=== PATIENT | male | born 1965 | race Two or more races ===

== ENCOUNTER 2018-08-11 13:14 | Emergency (ER) | payer MEDICAID ==
[~2018-08-11] VITALS: Ht 170.2 cm; Wt 81.6 kg
[2018-08-11 13:33] VITALS: BP 134/85
== END 2018-08-11 16:30 | disposition home or self-care (01) ==
LOC: ER 13:14
DX: B35.4 Tinea corporis (principal); F17.210 Nicotine dependence, cigarettes, uncomplicated

== ENCOUNTER 2022-06-19 19:23 | Emergency (ER) | payer MEDICAID ==
[2022-06-20] MEDS ORDERED: IBUP800T27 PO (11:14)
[2022-06-20] MEDS ORDERED: SULF400T11 PO (11:14)
== END 2022-06-19 23:45 | disposition left against medical advice (07) ==
LOC: ER 19:23
DX: I10 Essential (primary) hypertension (principal); Z53.21 Procedure and treatment not carried out due to patient leaving prior to being seen by health care provider

== ENCOUNTER 2022-06-20 09:46 | Emergency (ER) | payer MEDICAID ==
[~2022-06-20] VITALS: Ht 170.2 cm; Wt 85.9 kg
[2022-06-20 10:02] VITALS: BP 166/82
[2022-06-20] MEDS ORDERED: IBUP800T27 PO (11:14)
[2022-06-20] MEDS ORDERED: SULF400T11 PO (11:14)
== END 2022-06-20 11:22 | disposition home or self-care (01) ==
LOC: ER 09:46
DX: L02.511 Cutaneous abscess of right hand (principal); I10 Essential (primary) hypertension; F17.210 Nicotine dependence, cigarettes, uncomplicated; Z79.1 Long term (current) use of non-steroidal anti-inflammatories (NSAID); Z79.899 Other long term (current) drug therapy
CPT/HCPCS: 26010

== ENCOUNTER 2022-06-27 13:16 | Emergency (ER) | payer MEDICAID ==
[~2022-06-27] VITALS: Ht 170.2 cm; Wt 90.0 kg
[~2022-06-27 13:16] MED LIST: IBUP800T27 PO; SULF400T11 PO
[2022-06-27 14:12] VITALS: BP 154/90
[2022-06-27] MEDS ORDERED: SULF400T11 PO (14:25)
== END 2022-06-27 14:32 | disposition home or self-care (01) ==
LOC: ER 13:16
DX: L02.511 Cutaneous abscess of right hand (principal); Z48.817 Encounter for surgical aftercare following surgery on the skin and subcutaneous tissue
CPT/HCPCS: 26010

== ENCOUNTER 2022-06-29 15:40 | Emergency (ER) | payer MEDICAID ==
[~2022-06-29] VITALS: Ht 170.2 cm; Wt 190.0 kg
[2022-06-29 16:10] VITALS: BP 165/94
== END 2022-06-29 16:10 | disposition home or self-care (01) ==
LOC: ER 15:40
DX: L02.511 Cutaneous abscess of right hand (principal); I10 Essential (primary) hypertension; F17.210 Nicotine dependence, cigarettes, uncomplicated; F15.10 Other stimulant abuse, uncomplicated; Z48.00 Encounter for change or removal of nonsurgical wound dressing

== ENCOUNTER 2022-08-16 22:01 | Emergency (ER) | payer MEDICAID ==
[~2022-08-16] VITALS: Ht 167.6 cm; Wt 91.0 kg
[2022-08-17 02:27] VITALS: BP 158/98
[2022-08-17] MEDS ORDERED: PRED20TA2 PO (05:24)
[2022-08-17] MEDS ORDERED: ALBUAER3 IN (05:24)
== END 2022-08-17 05:30 | disposition home or self-care (01) ==
LOC: ER 22:05
DX: J40 Bronchitis, not specified as acute or chronic (principal); F17.210 Nicotine dependence, cigarettes, uncomplicated; F15.10 Other stimulant abuse, uncomplicated; I10 Essential (primary) hypertension
CPT/HCPCS: 71046

== ENCOUNTER 2022-10-30 05:07 | Emergency (ER) | payer MEDICAID ==
[~2022-10-30] VITALS: Ht 167.6 cm; Wt 89.7 kg
[~2022-10-30 05:07] MED LIST changes: +ALBUAER3 IN; +PRED20TA2 PO
[2022-10-30] MEDS ORDERED: KETOROLAC TROMETH 30 MG/ML 1ML VIAL IM ONE (07:45)
[2022-10-30] MEDS ORDERED: IBUP600T28 PO (08:43)
[2022-10-30 08:45] VITALS: BP 148/86
== END 2022-10-30 09:03 | disposition home or self-care (01) ==
LOC: ER 05:07
DX: S83.8X2A Sprain of other specified parts of left knee, initial encounter (principal); I10 Essential (primary) hypertension; F17.210 Nicotine dependence, cigarettes, uncomplicated; F15.90 Other stimulant use, unspecified, uncomplicated; Z79.899 Other long term (current) drug therapy; X58.XXXA Exposure to other specified factors, initial encounter; Y93.89 Activity, other specified; Y92.89 Other specified places as the place of occurrence of the external cause; Y99.8 Other external cause status
CPT/HCPCS: 73562; 93971; 96372; 99284; J1885

== ENCOUNTER 2024-06-28 14:12 | Inpatient (IN) | payer MEDICAID ==
[~2024-06-28] VITALS: Ht 170.2 cm; Wt 82.3 kg
[~2024-06-28 14:12] MED LIST changes: +IBUP-1456 PO; +IBUP1TAB5 PO; -IBUP800T27 PO
[2024-06-28 15:47] LABS: Urine Amorphous Crystal FEW /hpf (None Seen); Urine Bacteria FEW /hpf (None Seen); Urine Blood TRACE /uL (Negative); Urine Clarity Clear (Clear); Urine Color Colorless (Yellow); Urine Protein, UAD TRACE (Negative); Urine Specific Gravity 1.007 (1.001-1.035); Urine Urobilinogen Normal (Negative); Urine WBC 43 /hpf (0 - 3); Urine pH 7.5 (5.0-9.0)
[2024-06-28 18:34] LABS: Basophils # (auto) 0.1 10 ^3/uL (0-0.2); Basophils % (auto) 1.1 % (0.0-2.0); Eosinophils # (auto) 0.4 10 ^3/uL (0-0.8); Eosinophils % (auto) 5.9 % (0.0-7.0); Hematocrit 30.5 % (41.0-53.0); Hemoglobin 10.5 g/dL (13.5-17.5); Lymphocytes # (auto) 1.2 10 ^3/uL (0.4-5.4); Lymphocytes % (auto) 19.3 % (10.0-50.0); Mean Corpuscular Hemoglobin 31.4 pg (28.0-32.0); Mean Corpuscular Hgb Conc. 34.6 g/dL (32.0-36.0); Mean Corpuscular Volume 90.6 fL (80.0-100.0); Monocytes # (auto) 0.5 10 ^3/uL (0-1.3); Monocytes % (auto) 8.6 % (0.0-12.0); Neutrophils # (auto) 3.9 10 ^3/uL (1.6-8.6); Neutrophils % (auto) 65.1 % (37.0-80.0); Platelet Count (auto) 286 10^3/uL (140-450); Red Blood Cells 3.36 10^6/uL (4.5-5.90); Red Cell Distribution Width 13.5 % (11.8-14.3); White Blood Cell 6.1 10^3/uL (4.4-10.8)
[2024-06-28 18:57] LABS: Alanine Aminotransferase 25 U/L (7-40); Albumin 4.7 g/dL (3.2-4.8); Alkaline Phosphatase 77 U/L (46-116); Anion Gap 14 (5-15); Aspartate Aminotransferase 10 U/L (13-40); BUN/Creatinine Ratio 8.4 (10.0-20.0); Calcium 9.3 mg/dL (8.7-10.4); Carbon Dioxide 21 mmol/L (20-30); Chloride 102 mmol/L (98-107); Glucose 95 mg/dL (74-106); Lipase 95 U/L (12-53); Potassium 4.1 mmol/L (3.5-5.1); Sodium 137 mmol/L (136-145)
[2024-06-28 18:58] LABS: Bilirubin, Total 0.3 mg/dL (0.2-1.0); Total Protein 8.1 g/dL (5.7-8.2)
[2024-06-28 19:04] LABS: Blood Urea Nitrogen 91 mg/dL (9-23)
[2024-06-28] MEDS: hydrALAZINE HCL 20 MG/ML VL IV ONE (20:06)
[2024-06-28] MEDS: hydrALAZINE HCL 20 MG/ML VL ONE (20:07)
[2024-06-28] MEDS ORDERED: ONDANSETRON HCL 4 MG/2 ML VIAL IV PRN (20:30)
[2024-06-28] MEDS ORDERED: ACETAMINOPHEN 325 MG TAB PO PRN (20:30)
[2024-06-28] MEDS ORDERED: MORPHINE SULFATE INJ 2 MG/ml SYRG IV PRN (20:30)
[2024-06-28] MEDS ORDERED: DOCUSATE SOD 100 MG CAP PO PRN (20:30)
[2024-06-28] MEDS ORDERED: NITROGLYCERIN 0.4 MG SL TAB SL PRN (20:30)
[2024-06-28 21:50] VITALS: PULSE 82; RESP 19; O2SAT 98
[2024-06-28] MEDS: SODIUM CHLOR 0.9% PF (SALINE LOCK) 10ML VIAL/SYR IV SCH (22:00)
[2024-06-28] MEDS: cefTRIAXone 1GM/50ML D5W 50 ML IV ONE (22:22)
[2024-06-28] MEDS: METOPROLOL TARTRATE 25 MG TAB PO SCH (22:23)
[2024-06-28 23:43] VITALS: BP 189/104; PULSE 75; RESP 18; TEMP 97.7; O2SAT 98
[2024-06-28] MEDS: hydrALAZINE HCL 20 MG/ML VL IV PRN (23:57)
[2024-06-29] VITALS (8 sets, daily range): BP systolic 104–157; BP diastolic 56–89; PULSE 63–69; RESP 20; TEMP 97.6–98.8; O2SAT 94–99
[2024-06-29] MEDS: HYDROcodone-ACET 5/325MG TAB PO PRN (05:47)
[2024-06-29 06:41] LABS: Basophils # (auto) 0.1 10 ^3/uL (0-0.2); Basophils % (auto) 0.7 % (0.0-2.0); Eosinophils # (auto) 0.3 10 ^3/uL (0-0.8); Eosinophils % (auto) 3.8 % (0.0-7.0); Hematocrit 34.7 % (41.0-53.0); Hemoglobin 11.8 g/dL (13.5-17.5); Lymphocytes # (auto) 1.1 10 ^3/uL (0.4-5.4); Lymphocytes % (auto) 14.4 % (10.0-50.0); Mean Corpuscular Hemoglobin 31.1 pg (28.0-32.0); Mean Corpuscular Hgb Conc. 33.9 g/dL (32.0-36.0); Mean Corpuscular Volume 91.8 fL (80.0-100.0); Monocytes # (auto) 0.5 10 ^3/uL (0-1.3); Monocytes % (auto) 6.9 % (0.0-12.0); Neutrophils # (auto) 5.7 10 ^3/uL (1.6-8.6); Neutrophils % (auto) 74.2 % (37.0-80.0); Platelet Count (auto) 330 10^3/uL (140-450); Red Blood Cells 3.78 10^6/uL (4.5-5.90); White Blood Cell 7.7 10^3/uL (4.4-10.8)
[2024-06-29 06:55] LABS: Alanine Aminotransferase 25 U/L (7-40); Albumin 4.7 g/dL (3.2-4.8); Alkaline Phosphatase 76 U/L (46-116); Anion Gap 14 (5-15); Aspartate Aminotransferase 10 U/L (13-40); BUN/Creatinine Ratio 8.3 (10.0-20.0); Bilirubin, Total 0.3 mg/dL (0.2-1.0); Calcium 9.5 mg/dL (8.7-10.4); Carbon Dioxide 20 mmol/L (20-30); Chloride 102 mmol/L (98-107); Glucose 103 mg/dL (74-106); Potassium 4.2 mmol/L (3.5-5.1); Sodium 136 mmol/L (136-145); Total Protein 8.1 g/dL (5.7-8.2)
[2024-06-29 07:13] LABS: Blood Urea Nitrogen 88 mg/dL (9-23)
[2024-06-29] MEDS: B-COMPLEX W/ C & FOLIC ACID(NEPHROVITE TAB) PO SCH (09:43)
[2024-06-29] MEDS: TAMSULOSIN HYDROCHLORIDE 0.4 MG CAP PO SCH (09:44)
[2024-06-29] MEDS: amLODIPine BESYLATE 5 MG TAB PO SCH (09:44)
[2024-06-29] MEDS ORDERED: amLODIPine BESYLATE 5 MG TAB PO SCH (10:00)
[2024-06-29] MEDS: cefTRIAXone 1GM/50ML D5W 50 ML IV SCH (21:12)
[2024-06-30] VITALS (7 sets, daily range): BP systolic 101–137; BP diastolic 44–92; PULSE 64–98; RESP 16–20; TEMP 97.6–98.7; O2SAT 95–98
[2024-06-30 06:33] LABS: Calcium 9.4 mg/dL (8.7-10.4); Chloride 98 mmol/L (98-107); Potassium 4.3 mmol/L (3.5-5.1)
[2024-06-30 06:34] LABS: Anion Gap 15 (5-15); Carbon Dioxide 16 mmol/L (20-30)
[2024-06-30 06:39] LABS: BUN/Creatinine Ratio 9.7 (10.0-20.0); Glucose 119 mg/dL (74-106); Triglycerides 127 mg/dL (< 150)
[2024-06-30 06:40] LABS: LDL Cholesterol 83 mg/dL (< 100)
[2024-06-30 06:41] LABS: Cholesterol 147 mg/dL (< 200); HDL Cholesterol 40 mg/dL (40-59)
[2024-06-30 06:42] LABS: Sodium 129 mmol/L (136-145)
[2024-06-30 06:44] LABS: Blood Urea Nitrogen 102 mg/dL (9-23)
[2024-06-30 06:53] LABS: Basophils # (auto) 0 10 ^3/uL (0-0.2); Basophils % (auto) 0.5 % (0.0-2.0); Eosinophils # (auto) 0.2 10 ^3/uL (0-0.8); Eosinophils % (auto) 1.9 % (0.0-7.0); Hematocrit 35.2 % (41.0-53.0); Lymphocytes # (auto) 1.5 10 ^3/uL (0.4-5.4); Lymphocytes % (auto) 15.4 % (10.0-50.0); Mean Corpuscular Volume 91.1 fL (80.0-100.0); Monocytes # (auto) 0.6 10 ^3/uL (0-1.3); Monocytes % (auto) 5.6 % (0.0-12.0); Neutrophils # (auto) 7.7 10 ^3/uL (1.6-8.6); Neutrophils % (auto) 76.6 % (37.0-80.0); Nucleated Red Blood Cells % 0.1 %; Platelet Count (auto) 325 10^3/uL (140-450); Red Blood Cells 3.87 10^6/uL (4.5-5.90); Red Cell Distribution Width 13.8 % (11.8-14.3); White Blood Cell 10.1 10^3/uL (4.4-10.8)
[2024-06-30] MEDS ORDERED: SODIUM CHLORIDE 0.9% 1,000 ML IV SCH (15:45)
[2024-06-30] MEDS: SODIUM CHLORIDE 0.9% 1,000 ML IV SCH (16:00)
[2024-07-01] VITALS (7 sets, daily range): BP systolic 109–150; BP diastolic 60–86; PULSE 70–88; RESP 18–20; TEMP 98.3–98.6; O2SAT 95–99
[2024-07-01 06:31] LABS: Anion Gap 14 (5-15); Carbon Dioxide 16 mmol/L (20-30); Chloride 101 mmol/L (98-107); Potassium 3.8 mmol/L (3.5-5.1); Sodium 131 mmol/L (136-145)
[2024-07-01 06:32] LABS: Calcium 8.9 mg/dL (8.7-10.4)
[2024-07-01 06:34] LABS: Basophils # (auto) 0.1 10 ^3/uL (0-0.2); Basophils % (auto) 0.6 % (0.0-2.0); Eosinophils # (auto) 0.5 10 ^3/uL (0-0.8); Eosinophils % (auto) 4.8 % (0.0-7.0); Hematocrit 32.2 % (41.0-53.0); Lymphocytes # (auto) 1.3 10 ^3/uL (0.4-5.4); Lymphocytes % (auto) 13.7 % (10.0-50.0); Mean Corpuscular Hemoglobin 30.8 pg (28.0-32.0); Mean Corpuscular Hgb Conc. 34.1 g/dL (32.0-36.0); Mean Corpuscular Volume 90.3 fL (80.0-100.0); Monocytes # (auto) 0.7 10 ^3/uL (0-1.3); Neutrophils # (auto) 7.1 10 ^3/uL (1.6-8.6); Neutrophils % (auto) 73.9 % (37.0-80.0); Platelet Count (auto) 282 10^3/uL (140-450); Red Blood Cells 3.56 10^6/uL (4.5-5.90); Red Cell Distribution Width 13.5 % (11.8-14.3); White Blood Cell 9.6 10^3/uL (4.4-10.8)
[2024-07-01 06:37] LABS: BUN/Creatinine Ratio 11.1 (10.0-20.0); Glucose 110 mg/dL (74-106)
[2024-07-01 07:01] LABS: Blood Urea Nitrogen 100 mg/dL (9-23)
[2024-07-01 08:30] LABS: Magnesium 1.6 mg/dL (1.6-2.6)
[2024-07-01 08:32] LABS: Phosphorus 7.8 mg/dL (2.4-5.1)
[2024-07-01] MEDS: LACTULOSE 20Gm/30ML SOLN PO ONE (09:45)
[2024-07-01] MEDS: amLODIPine BESYLATE 5 MG TAB PO SCH (09:46)
[2024-07-01] MEDS: DOCUSATE SOD 100 MG CAP PO SCH (09:46)
[2024-07-01] MEDS: SODIUM CHLORIDE 0.9% 1,000 ML IV SCH (15:45)
[2024-07-01] MEDS: SODIUM BICARBONATE 650 MG TAB PO ONE (16:31)
[2024-07-01] MEDS: CALCITRIOL 0.25 MCG CAP PO ONE (16:31)
[2024-07-01] MEDS ORDERED: CALCIUM ACETATE 667 MG CAP PO SCH (18:00)
[2024-07-01] MEDS ORDERED: SODIUM BICARBONATE 650 MG TAB PO SCH (18:00)
[2024-07-01] MEDS: SODIUM BICARBONATE 650 MG TAB PO SCH (21:06)
[2024-07-02] VITALS (11 sets, daily range): BP systolic 107–158; BP diastolic 60–79; PULSE 79–89; RESP 13–87; TEMP 98.3–99.1; O2SAT 96–99
[2024-07-02 07:10] LABS: Chloride 103 mmol/L (98-107); Potassium 3.6 mmol/L (3.5-5.1); Sodium 134 mmol/L (136-145)
[2024-07-02 07:11] LABS: Anion Gap 15 (5-15); Calcium 9.1 mg/dL (8.7-10.4); Carbon Dioxide 16 mmol/L (20-30)
[2024-07-02 07:16] LABS: BUN/Creatinine Ratio 12.1 (10.0-20.0); Glucose 130 mg/dL (74-106)
[2024-07-02 07:21] LABS: Blood Urea Nitrogen 86 mg/dL (9-23)
[2024-07-02 07:30] LABS: Basophils # (auto) 0 10 ^3/uL (0-0.2); Basophils % (auto) 0.4 % (0.0-2.0); Eosinophils # (auto) 0.5 10 ^3/uL (0-0.8); Eosinophils % (auto) 4.7 % (0.0-7.0); Hematocrit 34.7 % (41.0-53.0); Hemoglobin 11.8 g/dL (13.5-17.5); Lymphocytes # (auto) 1.3 10 ^3/uL (0.4-5.4); Lymphocytes % (auto) 12.4 % (10.0-50.0); Mean Corpuscular Hemoglobin 31.7 pg (28.0-32.0); Mean Corpuscular Hgb Conc. 33.9 g/dL (32.0-36.0); Mean Corpuscular Volume 93.4 fL (80.0-100.0); Monocytes # (auto) 0.7 10 ^3/uL (0-1.3); Monocytes % (auto) 6.4 % (0.0-12.0); Neutrophils # (auto) 7.8 10 ^3/uL (1.6-8.6); Neutrophils % (auto) 76.1 % (37.0-80.0); Platelet Count (auto) 330 10^3/uL (140-450); Red Blood Cells 3.72 10^6/uL (4.5-5.90); Red Cell Distribution Width 13.8 % (11.8-14.3); White Blood Cell 10.3 10^3/uL (4.4-10.8)
[2024-07-02 07:32] LABS: INR 0.95 (0.9-1.15); Partial Thromboplastin Time 29.3 SEC (24.5-34.5); Prothrombin Time 10.1 sec (9.3-11.8)
[2024-07-02] MEDS: CALCIUM ACETATE 667 MG CAP PO SCH (08:00)
[2024-07-02] MEDS: CALCITRIOL 0.25 MCG CAP PO SCH (10:00)
[2024-07-02] MEDS: fentaNYL CITRATE 100 MCG/2 ML VL ONE (12:11)
[2024-07-02] MEDS: LIDOCAINE 2%HCL (LOCAL ANESTH.) INJ 20ML MDV ONE (12:11)
[2024-07-02] MEDS: IODIXANOL 320MG/ML 100ML BTL IV ONE (12:11)
[2024-07-02] MEDS: MIDAZOLAM HCL 2MG/2ML 2ml VIAL (1mg/ml) ONE (12:11)
[2024-07-02 14:35] LABS: Sodium Urine 51 mmol/L (40-220)
[2024-07-02 14:41] LABS: Protein, Urine 153.8 mg/dL (0.0-11.9)
[2024-07-02 14:42] LABS: Amphetamine Screen, Urine Neg (NEGATIVE); Barbiturate Scree,Urine Neg (NEGATIVE); Benzodiazephine Screen, Urine Neg (NEGATIVE)
[2024-07-02 14:43] LABS: Cannabinoid Screen, Urine Neg (NEGATIVE); Cocaine Screen, Urine Neg (NEGATIVE); Opiate Scree,Urine Neg (NEGATIVE); Phencyclidine Screen, Urine Neg (NEGATIVE)
[2024-07-02] MEDS: SODIUM BICARB 50mEq/50ml Vial 50 ML in SOD CHL 0.45% 1,000 ML IV SCH (17:13)
[2024-07-02] MEDS: ERGOCALCIFEROL 50,000 UNIT(1.25MG) CAP PO SCH (23:02)
[2024-07-03] VITALS (7 sets, daily range): BP systolic 110–162; BP diastolic 56–73; PULSE 77–89; RESP 16–20; TEMP 97.6–99; O2SAT 93–100
[2024-07-03 06:11] LABS: Basophils # (auto) 0.1 10 ^3/uL (0-0.2); Basophils % (auto) 0.7 % (0.0-2.0); Eosinophils # (auto) 0.6 10 ^3/uL (0-0.8); Eosinophils % (auto) 5.9 % (0.0-7.0); Hematocrit 29.9 % (41.0-53.0); Hemoglobin 10.6 g/dL (13.5-17.5); Lymphocytes # (auto) 1.4 10 ^3/uL (0.4-5.4); Lymphocytes % (auto) 13.4 % (10.0-50.0); Mean Corpuscular Hemoglobin 31.9 pg (28.0-32.0); Mean Corpuscular Hgb Conc. 35.5 g/dL (32.0-36.0); Mean Corpuscular Volume 89.8 fL (80.0-100.0); Monocytes # (auto) 0.7 10 ^3/uL (0-1.3); Monocytes % (auto) 7.3 % (0.0-12.0); Neutrophils # (auto) 7.4 10 ^3/uL (1.6-8.6); Neutrophils % (auto) 72.7 % (37.0-80.0); Platelet Count (auto) 307 10^3/uL (140-450); Red Blood Cells 3.32 10^6/uL (4.5-5.90); Red Cell Distribution Width 13.4 % (11.8-14.3); White Blood Cell 10.2 10^3/uL (4.4-10.8)
[2024-07-03 06:21] LABS: Anion Gap 10 (5-15); Carbon Dioxide 22 mmol/L (20-30); Chloride 102 mmol/L (98-107); Potassium 3.2 mmol/L (3.5-5.1); Sodium 134 mmol/L (136-145)
[2024-07-03 06:22] LABS: Calcium 8.7 mg/dL (8.7-10.4)
[2024-07-03 06:27] LABS: Glucose 112 mg/dL (74-106)
[2024-07-03 06:32] LABS: Blood Urea Nitrogen 88 mg/dL (9-23)
[2024-07-03] MEDS ORDERED: POTASSIUM CHL 20MEQ/100ML 100 ML IV SCH (12:45)
[2024-07-03] MEDS: POTASSIUM EFFERVESENT TAB 25 MEQ PO ONE ×2 (15:04→20:35)
[2024-07-03] MEDS: MAGNESIUM SULFATE 1GM/100ML 100 ML IV ONE (16:46)
[2024-07-04] VITALS (8 sets, daily range): BP systolic 124–146; BP diastolic 44–85; PULSE 75–87; RESP 16–22; TEMP 97.8–99; O2SAT 96–100
[2024-07-04 06:22] LABS: Basophils # (auto) 0.1 10 ^3/uL (0-0.2); Basophils % (auto) 0.8 % (0.0-2.0); Eosinophils # (auto) 0.6 10 ^3/uL (0-0.8); Eosinophils % (auto) 6.9 % (0.0-7.0); Hematocrit 27.5 % (41.0-53.0); Hemoglobin 9.9 g/dL (13.5-17.5); Lymphocytes # (auto) 1.6 10 ^3/uL (0.4-5.4); Lymphocytes % (auto) 17.6 % (10.0-50.0); Mean Corpuscular Volume 88.9 fL (80.0-100.0); Monocytes # (auto) 0.8 10 ^3/uL (0-1.3); Monocytes % (auto) 8.8 % (0.0-12.0); Neutrophils # (auto) 5.8 10 ^3/uL (1.6-8.6); Neutrophils % (auto) 65.9 % (37.0-80.0); Platelet Count (auto) 315 10^3/uL (140-450); Red Cell Distribution Width 13.3 % (11.8-14.3); White Blood Cell 8.8 10^3/uL (4.4-10.8)
[2024-07-04 06:32] LABS: Anion Gap 8 (5-15); Carbon Dioxide 28 mmol/L (20-30); Chloride 100 mmol/L (98-107); Potassium 3.4 mmol/L (3.5-5.1); Sodium 136 mmol/L (136-145)
[2024-07-04 06:33] LABS: Calcium 8.9 mg/dL (8.7-10.4)
[2024-07-04 06:38] LABS: BUN/Creatinine Ratio 16.1 (10.0-20.0); Glucose 111 mg/dL (74-106)
[2024-07-04 06:49] LABS: Blood Urea Nitrogen 75 mg/dL (9-23)
[2024-07-04] MEDS: POTASSIUM CHL 20 Meq TABLET PO ONE (07:45)
[2024-07-04] MEDS: SODIUM BICARB 50mEq/50ml Vial 50 ML in SOD CHL 0.45% 1,000 ML IV SCH (11:00)
[2024-07-04] MEDS: POTASSIUM EFFERVESENT TAB 25 MEQ PO ONE (13:05)
[2024-07-05] VITALS (8 sets, daily range): BP systolic 118–148; BP diastolic 55–87; PULSE 72–84; RESP 16–20; TEMP 97.8–99.1; O2SAT 96–100
[2024-07-05 06:14] LABS: Basophils # (auto) 0.1 10 ^3/uL (0-0.2); Basophils % (auto) 0.9 % (0.0-2.0); Eosinophils # (auto) 0.5 10 ^3/uL (0-0.8); Eosinophils % (auto) 6.3 % (0.0-7.0); Hematocrit 26.9 % (41.0-53.0); Hemoglobin 9.8 g/dL (13.5-17.5); Lymphocytes # (auto) 1.6 10 ^3/uL (0.4-5.4); Lymphocytes % (auto) 19.8 % (10.0-50.0); Mean Corpuscular Hemoglobin 32.8 pg (28.0-32.0); Mean Corpuscular Hgb Conc. 36.3 g/dL (32.0-36.0); Mean Corpuscular Volume 90.3 fL (80.0-100.0); Monocytes # (auto) 0.6 10 ^3/uL (0-1.3); Monocytes % (auto) 7.5 % (0.0-12.0); Neutrophils # (auto) 5.2 10 ^3/uL (1.6-8.6); Neutrophils % (auto) 65.5 % (37.0-80.0); Platelet Count (auto) 291 10^3/uL (140-450); Red Blood Cells 2.98 10^6/uL (4.5-5.90); Red Cell Distribution Width 13.2 % (11.8-14.3); White Blood Cell 7.9 10^3/uL (4.4-10.8)
[2024-07-05 06:33] LABS: Anion Gap 8 (5-15); Carbon Dioxide 31 mmol/L (20-30); Chloride 98 mmol/L (98-107); Potassium 3.6 mmol/L (3.5-5.1); Sodium 137 mmol/L (136-145)
[2024-07-05 06:35] LABS: Calcium 8.9 mg/dL (8.7-10.4)
[2024-07-05 06:39] LABS: BUN/Creatinine Ratio 14.1 (10.0-20.0)
[2024-07-05 06:42] LABS: Glucose 104 mg/dL (74-106)
[2024-07-05 06:45] LABS: Blood Urea Nitrogen 61 mg/dL (9-23)
[2024-07-05] MEDS: SODIUM CHLORIDE 0.9% 1,000 ML IV SCH (13:00)
[2024-07-06] VITALS (8 sets, daily range): BP systolic 112–139; BP diastolic 66–84; PULSE 73–86; RESP 18–20; TEMP 98.4–98.9; O2SAT 95–100
[2024-07-06 05:07] LABS: RPR Non Reactive (Non Reactive)
[2024-07-06 06:26] LABS: Anion Gap 6 (5-15); Carbon Dioxide 32 mmol/L (20-30); Chloride 99 mmol/L (98-107); Potassium 3.4 mmol/L (3.5-5.1); Sodium 137 mmol/L (136-145)
[2024-07-06 06:27] LABS: Calcium 9.2 mg/dL (8.7-10.4)
[2024-07-06 06:32] LABS: BUN/Creatinine Ratio 13.9 (10.0-20.0); Blood Urea Nitrogen 58 mg/dL (9-23); Glucose 92 mg/dL (74-106)
[2024-07-06 10:06] LABS: Anti-Nuclear Antibody Direct Negative (Negative)
[2024-07-06] MEDS: POTASSIUM CHL 10 Meq TABLET PO ONE (10:20)
[2024-07-06] MEDS: MAGNESIUM OXIDE 400 MG TAB PO ONE (10:20)
[2024-07-06] MEDS: SODIUM CHLORIDE 0.9% 1,000 ML IV SCH (11:15)
[2024-07-06] MEDS ORDERED: TAMS0.4C39 PO (15:38)
[2024-07-06] MEDS: POTASSIUM CHL 20 Meq TABLET PO ONE (17:43)
[2024-07-07 01:00] VITALS: BP 149/71; PULSE 85; RESP 18; TEMP 98.9; O2SAT 97
[2024-07-07 05:00] VITALS: BP 139/81; PULSE 79; RESP 18; TEMP 98.8; O2SAT 96
[2024-07-07 08:00] VITALS: PULSE 87; RESP 18; O2SAT 96
[2024-07-07 09:00] VITALS: BP_SYST 120; BP_SYST 132; BP_DIAS 69; BP_DIAS 80; PULSE 77; PULSE 87; RESP 18; RESP 20; TEMP 98.1; TEMP 98.3; O2SAT 97
== END 2024-07-07 12:00 | disposition home health service (06) | DRG 501 ==
LOC: ER 14:12 → TELE 20:29 → TELE-EAST 23:43 → EAST 06-29 17:58
PROVIDERS: ADMIT Internal Medicine; ATTEND Internal Medicine
PROC: 0T9330Z Drainage of Right Kidney Pelvis with Drainage Device, Percutaneous Approach (ICD-10-PCS; principal; 2024-07-02)
PROC: 0T9430Z Drainage of Left Kidney Pelvis with Drainage Device, Percutaneous Approach (ICD-10-PCS; 2024-07-02)
DX: N40.1 Benign prostatic hyperplasia with lower urinary tract symptoms (principal); N17.9 Acute kidney failure, unspecified; E87.20 Acidosis, unspecified; N13.6 Pyonephrosis; E83.39 Other disorders of phosphorus metabolism; N04.20 Nephrotic syndrome with diffuse membranous glomerulonephritis, unspecified; N13.8 Other obstructive and reflux uropathy; E87.6 Hypokalemia; F17.210 Nicotine dependence, cigarettes, uncomplicated; E83.42 Hypomagnesemia; I16.1 Hypertensive emergency; I10 Essential (primary) hypertension
CPT/HCPCS: 36415; 50432; 74176; 74425; 76775; 76942; 80048; 80053; 80061; 80307; 81001; 82306; 82570; 83036; 83690; 83735; 83970; 84100; 84132; 84153; 84156; 84300; 85025; 85610; 85730; 86038; 86592; 86703; 86803; 86850; 86900; 86901; 87086; 87340; 93306; 96365; 99152; G0378; J2250; J3480; Q9967

== ENCOUNTER 2024-07-28 16:04 | Emergency (ER) | payer MEDICAID ==
[~2024-07-28] VITALS: Ht 170.2 cm; Wt 84.5 kg
[~2024-07-28 16:04] MED LIST changes: +TAMS0.4C39 PO
[2024-07-28 17:23] LABS: Urine Amorphous Crystal FEW /hpf (None Seen); Urine Bacteria FEW /hpf (None Seen); Urine Blood 1+ /uL (Negative); Urine Clarity Turbid (Clear); Urine Color Yellow (Yellow); Urine Protein, UAD 1+ (Negative); Urine Specific Gravity 1.011 (1.001-1.035); Urine Urobilinogen Normal (Negative); Urine WBC 26 /hpf (0 - 3); Urine pH 6.5 (5.0-9.0)
[2024-07-28 17:29] LABS: Basophils # (auto) 0.1 10 ^3/uL (0-0.2); Basophils % (auto) 0.6 % (0.0-2.0); Eosinophils # (auto) 0.6 10 ^3/uL (0-0.8); Eosinophils % (auto) 5.1 % (0.0-7.0); Hematocrit 28.7 % (41.0-53.0); Hemoglobin 9.9 g/dL (13.5-17.5); Lymphocytes # (auto) 1.7 10 ^3/uL (0.4-5.4); Lymphocytes % (auto) 14.3 % (10.0-50.0); Mean Corpuscular Hemoglobin 31.3 pg (28.0-32.0); Mean Corpuscular Hgb Conc. 34.3 g/dL (32.0-36.0); Mean Corpuscular Volume 91.2 fL (80.0-100.0); Monocytes % (auto) 8.3 % (0.0-12.0); Neutrophils # (auto) 8.5 10 ^3/uL (1.6-8.6); Neutrophils % (auto) 71.7 % (37.0-80.0); Platelet Count (auto) 305 10^3/uL (140-450); Red Blood Cells 3.15 10^6/uL (4.5-5.90); White Blood Cell 11.8 10^3/uL (4.4-10.8)
[2024-07-28 17:45] LABS: Alanine Aminotransferase 20 U/L (7-40); Albumin 4.5 g/dL (3.2-4.8); Alkaline Phosphatase 88 U/L (46-116); Anion Gap 6 (5-15); Aspartate Aminotransferase 14 U/L (13-40); BUN/Creatinine Ratio 15.7 (10.0-20.0); Blood Urea Nitrogen 51 mg/dL (9-23); Calcium 9.5 mg/dL (8.7-10.4); Carbon Dioxide 26 mmol/L (20-30); Chloride 104 mmol/L (98-107); Glucose 94 mg/dL (74-106); Lipase 51 U/L (12-53); Potassium 4.3 mmol/L (3.5-5.1); Sodium 136 mmol/L (136-145)
[2024-07-28 17:46] LABS: Bilirubin, Total 0.2 mg/dL (0.2-1.0); Total Protein 7.3 g/dL (5.7-8.2)
[2024-07-28] MEDS ORDERED: CIPR-173 PO (21:07)
[2024-07-28] MEDS ORDERED: METR-344 PO (21:07)
[2024-07-28 21:25] VITALS: BP 141/82; PULSE 91; RESP 14; TEMP 98.7; O2SAT 100
== END 2024-07-28 21:41 | disposition home or self-care (01) ==
LOC: ER 16:04
DX: K57.92 Diverticulitis of intestine, part unspecified, without perforation or abscess without bleeding (principal); I10 Essential (primary) hypertension; F17.210 Nicotine dependence, cigarettes, uncomplicated; F15.10 Other stimulant abuse, uncomplicated
CPT/HCPCS: 36415; 74176; 80053; 81001; 83690; 85025

== ENCOUNTER 2024-08-05 12:42 | Inpatient (IN) | payer MEDICAID ==
[~2024-08-05] VITALS: Ht 175.3 cm; Wt 94.4 kg
[~2024-08-05 12:42] MED LIST changes: +CIPR-173 PO; +METR-344 PO
[2024-08-05 13:11] LABS: Basophils # (auto) 0.1 10 ^3/uL (0-0.2); Basophils % (auto) 1.2 % (0.0-2.0); Eosinophils # (auto) 0.5 10 ^3/uL (0-0.8); Eosinophils % (auto) 5.7 % (0.0-7.0); Hematocrit 28.4 % (41.0-53.0); Lymphocytes # (auto) 1.7 10 ^3/uL (0.4-5.4); Mean Corpuscular Hemoglobin 32.3 pg (28.0-32.0); Mean Corpuscular Hgb Conc. 35.3 g/dL (32.0-36.0); Mean Corpuscular Volume 91.5 fL (80.0-100.0); Monocytes # (auto) 0.8 10 ^3/uL (0-1.3); Monocytes % (auto) 8.7 % (0.0-12.0); Neutrophils # (auto) 5.7 10 ^3/uL (1.6-8.6); Neutrophils % (auto) 65.4 % (37.0-80.0); Platelet Count (auto) 239 10^3/uL (140-450); White Blood Cell 8.8 10^3/uL (4.4-10.8)
[2024-08-05 13:17] VITALS: PULSE 74; RESP 16; O2SAT 98
[2024-08-05 13:20] LABS: Chloride 107 mmol/L (98-107); Potassium 4.2 mmol/L (3.5-5.1); Sodium 139 mmol/L (136-145)
[2024-08-05 13:23] LABS: Anion Gap 8 (5-15); Carbon Dioxide 24 mmol/L (20-31)
[2024-08-05 13:24] LABS: Calcium 9.5 mg/dL (8.7-10.4)
[2024-08-05 13:28] LABS: BUN/Creatinine Ratio 17.6 (10.0-20.0); Blood Urea Nitrogen 56 mg/dL (9-23); Glucose 125 mg/dL (74-106)
[2024-08-05 19:26] VITALS: PULSE 72; RESP 16; O2SAT 96
[2024-08-05 23:14] LABS: Urine Amorphous Crystal FEW /hpf (None Seen); Urine Bacteria FEW /hpf (None Seen); Urine Blood TRACE /uL (Negative); Urine Clarity Clear (Clear); Urine Color Light-Yellow (Yellow); Urine Protein, UAD Negative (Negative); Urine Specific Gravity 1.009 (1.001-1.035); Urine Urobilinogen Normal (Negative); Urine WBC 10 /hpf (0 - 3); Urine pH 5.5 (5.0-9.0)
[2024-08-05] MEDS ORDERED: ONDANSETRON HCL 4 MG/2 ML VIAL IV PRN (23:30)
[2024-08-05] MEDS ORDERED: hydrALAZINE HCL 20 MG/ML VL IV PRN (23:30)
[2024-08-05] MEDS ORDERED: NITROGLYCERIN 0.4 MG SL TAB SL PRN (23:30)
[2024-08-05] MEDS ORDERED: DOCUSATE SOD 100 MG CAP PO PRN (23:30)
[2024-08-05] MEDS ORDERED: HYDROcodone-ACET 5/325MG TAB PO PRN (23:30)
[2024-08-05] MEDS ORDERED: ACETAMINOPHEN 325 MG TAB PO PRN (23:30)
[2024-08-05] MEDS ORDERED: DEXTROSE (50%) 50ML SYRG IV PRN (23:30)
[2024-08-05] MEDS ORDERED: MORPHINE SULFATE INJ 2 MG/ml SYRG IV PRN (23:30)
[2024-08-05] MEDS: levETIRAcetam 500 mg/100ml 100 ML IV ONE (23:33)
[2024-08-05] MEDS: SODIUM CHLORIDE 0.9% 1,000 ML IV SCH (23:34)
[2024-08-06] VITALS (7 sets, daily range): BP systolic 109–163; BP diastolic 55–113; PULSE 68–79; RESP 13–20; TEMP 98.1–98.4; O2SAT 96–100
[2024-08-06 04:18] LABS: Basophils # (auto) 0.1 10 ^3/uL (0-0.2); Basophils % (auto) 0.7 % (0.0-2.0); Eosinophils # (auto) 0.4 10 ^3/uL (0-0.8); Eosinophils % (auto) 3.5 % (0.0-7.0); Hemoglobin 10.1 g/dL (13.5-17.5); Lymphocytes # (auto) 1.7 10 ^3/uL (0.4-5.4); Mean Corpuscular Hgb Conc. 34.7 g/dL (32.0-36.0); Mean Corpuscular Volume 92.2 fL (80.0-100.0); Monocytes # (auto) 0.8 10 ^3/uL (0-1.3); Neutrophils # (auto) 7.5 10 ^3/uL (1.6-8.6); Neutrophils % (auto) 71.8 % (37.0-80.0); Platelet Count (auto) 262 10^3/uL (140-450); Red Blood Cells 3.14 10^6/uL (4.5-5.90); White Blood Cell 10.4 10^3/uL (4.4-10.8)
[2024-08-06 04:37] LABS: Alanine Aminotransferase 25 U/L (7-40); Albumin 4.1 g/dL (3.2-4.8); Alkaline Phosphatase 63 U/L (46-116); Anion Gap 8 (5-15); Aspartate Aminotransferase 19 U/L (13-40); BUN/Creatinine Ratio 14.4 (10.0-20.0); Calcium 9.5 mg/dL (8.7-10.4); Carbon Dioxide 24 mmol/L (20-31); Chloride 105 mmol/L (98-107); Glucose 98 mg/dL (74-106); Potassium 4.4 mmol/L (3.5-5.1); Sodium 137 mmol/L (136-145)
[2024-08-06 04:38] LABS: Bilirubin, Total 0.3 mg/dL (0.2-1.0); Total Protein 6.9 g/dL (5.7-8.2)
[2024-08-06 04:57] LABS: Blood Urea Nitrogen 43 mg/dL (9-23)
[2024-08-06] MEDS: ACCU-CHEK COMFORT CURVE STRIP VI SCH (06:12)
[2024-08-06] MEDS: InsuLIN REG 1unit/0.01ml Soln (100units/ml) SC SCH (06:12)
[2024-08-06] MEDS: levETIRAcetam 500 mg/100ml 100 ML IV SCH (10:48)
[2024-08-06] MEDS: amLODIPine BESYLATE 5 MG TAB PO ONE (16:42)
[2024-08-07] VITALS (7 sets, daily range): BP systolic 125–165; BP diastolic 71–88; PULSE 63–81; RESP 13–18; TEMP 97.9–98.2; O2SAT 95–98
[2024-08-07] MEDS: amLODIPine BESYLATE 5 MG TAB PO SCH (09:31)
[2024-08-07 18:47] LABS: Urine Bacteria None Seen /hpf (None Seen)
[2024-08-07 19:16] LABS: Urine Blood TRACE /uL (Negative); Urine Clarity Clear (Clear); Urine Color Colorless (Yellow); Urine Protein, UAD TRACE (Negative); Urine Specific Gravity 1.008 (1.001-1.035); Urine Urobilinogen Normal (Negative); Urine WBC 9 /hpf (0 - 3)
[2024-08-07 19:20] LABS: Sodium Urine 65 mmol/L (40-220)
[2024-08-07 19:27] LABS: Amphetamine Screen, Urine Neg (NEGATIVE); Barbiturate Scree,Urine Neg (NEGATIVE); Benzodiazephine Screen, Urine Neg (NEGATIVE); Cocaine Screen, Urine Neg (NEGATIVE); Opiate Scree,Urine Neg (NEGATIVE); Phencyclidine Screen, Urine Neg (NEGATIVE)
[2024-08-07 19:28] LABS: Cannabinoid Screen, Urine Neg (NEGATIVE); Creatinine, Urine 36.27 mg/dL (30.0-125.0)
[2024-08-08] VITALS (8 sets, daily range): BP systolic 127–144; BP diastolic 67–78; PULSE 67–92; RESP 14–20; TEMP 97.8–98.5; O2SAT 96–100
[2024-08-08 06:22] LABS: Basophils # (auto) 0.1 10 ^3/uL (0-0.2); Basophils % (auto) 0.8 % (0.0-2.0); Eosinophils # (auto) 0.5 10 ^3/uL (0-0.8); Eosinophils % (auto) 6.1 % (0.0-7.0); Hematocrit 28.5 % (41.0-53.0); Hemoglobin 9.8 g/dL (13.5-17.5); Lymphocytes # (auto) 1.7 10 ^3/uL (0.4-5.4); Lymphocytes % (auto) 19.4 % (10.0-50.0); Mean Corpuscular Hemoglobin 31.5 pg (28.0-32.0); Mean Corpuscular Hgb Conc. 34.5 g/dL (32.0-36.0); Mean Corpuscular Volume 91.2 fL (80.0-100.0); Monocytes # (auto) 0.7 10 ^3/uL (0-1.3); Monocytes % (auto) 8.7 % (0.0-12.0); Neutrophils # (auto) 5.6 10 ^3/uL (1.6-8.6); Platelet Count (auto) 267 10^3/uL (140-450); Red Blood Cells 3.12 10^6/uL (4.5-5.90); Red Cell Distribution Width 13.9 % (11.8-14.3); White Blood Cell 8.6 10^3/uL (4.4-10.8)
[2024-08-08 06:36] LABS: Chloride 109 mmol/L (98-107); Potassium 4.2 mmol/L (3.5-5.1); Sodium 138 mmol/L (136-145)
[2024-08-08 06:37] LABS: Anion Gap 6 (5-15); Calcium 9.3 mg/dL (8.7-10.4); Carbon Dioxide 23 mmol/L (20-31)
[2024-08-08 06:42] LABS: BUN/Creatinine Ratio 16.2 (10.0-20.0); Blood Urea Nitrogen 50 mg/dL (9-23); Glucose 94 mg/dL (74-106)
[2024-08-08] MEDS: cefTRIAXone 1GM/50ML D5W 50 ML IV SCH (17:39)
[2024-08-08] MEDS ORDERED: LORazepam 2MG/ML-1ML VIAL IV PRN ×2 (22:00)
[2024-08-09 01:00] VITALS: BP 140/71; PULSE 77; RESP 20; TEMP 98; O2SAT 95
[2024-08-09 05:00] VITALS: BP 133/65; PULSE 71; RESP 20; TEMP 98.5; O2SAT 99
[2024-08-09 06:35] LABS: Basophils # (auto) 0.1 10 ^3/uL (0-0.2); Basophils % (auto) 0.8 % (0.0-2.0); Eosinophils # (auto) 0.5 10 ^3/uL (0-0.8); Eosinophils % (auto) 6.3 % (0.0-7.0); Hematocrit 26.3 % (41.0-53.0); Hemoglobin 9.3 g/dL (13.5-17.5); Lymphocytes # (auto) 1.7 10 ^3/uL (0.4-5.4); Lymphocytes % (auto) 20.5 % (10.0-50.0); Mean Corpuscular Hemoglobin 32.3 pg (28.0-32.0); Mean Corpuscular Hgb Conc. 35.3 g/dL (32.0-36.0); Mean Corpuscular Volume 91.5 fL (80.0-100.0); Monocytes # (auto) 0.7 10 ^3/uL (0-1.3); Monocytes % (auto) 8.6 % (0.0-12.0); Neutrophils # (auto) 5.4 10 ^3/uL (1.6-8.6); Neutrophils % (auto) 63.8 % (37.0-80.0); Platelet Count (auto) 244 10^3/uL (140-450); Red Blood Cells 2.88 10^6/uL (4.5-5.90); Red Cell Distribution Width 14.1 % (11.8-14.3); White Blood Cell 8.4 10^3/uL (4.4-10.8)
[2024-08-09 06:49] LABS: Anion Gap 9 (5-15); Calcium 9.1 mg/dL (8.7-10.4); Carbon Dioxide 23 mmol/L (20-31); Chloride 108 mmol/L (98-107); Potassium 4.4 mmol/L (3.5-5.1); Sodium 140 mmol/L (136-145)
[2024-08-09 06:55] LABS: BUN/Creatinine Ratio 16.7 (10.0-20.0); Blood Urea Nitrogen 51 mg/dL (9-23); Glucose 89 mg/dL (74-106)
[2024-08-09 08:00] VITALS: PULSE 66
[2024-08-09 09:07] VITALS: BP 142/84; PULSE 71; RESP 18; TEMP 98.5; O2SAT 96
[2024-08-09 13:00] VITALS: BP 142/88; PULSE 63; RESP 17; TEMP 98.3; O2SAT 96
== END 2024-08-09 16:30 | disposition home health service (06) | DRG 53 ==
LOC: ER 12:42 → EDBD 12:42 → TELE 23:24 → TELE-E-ADS 08-06 04:40
PROVIDERS: ADMIT Nurse Practitioner Family; ATTEND Internal Medicine
DX: G40.909 Epilepsy, unspecified, not intractable, without status epilepticus (principal); N17.9 Acute kidney failure, unspecified; F17.210 Nicotine dependence, cigarettes, uncomplicated; D64.9 Anemia, unspecified; I12.9 Hypertensive chronic kidney disease with stage 1 through stage 4 chronic kidney disease, or unspecified chronic kidney disease; E11.22 Type 2 diabetes mellitus with diabetic chronic kidney disease; N18.9 Chronic kidney disease, unspecified; N40.0 Benign prostatic hyperplasia without lower urinary tract symptoms; Z90.5 Acquired absence of kidney; Z82.49 Family history of ischemic heart disease and other diseases of the circulatory system; Z82.3 Family history of stroke; Z83.3 Family history of diabetes mellitus; Z81.8 Family history of other mental and behavioral disorders; Z79.4 Long term (current) use of insulin; Z79.899 Other long term (current) drug therapy
CPT/HCPCS: 36415; 70450; 70551; 76775; 80048; 80053; 80307; 81001; 82550; 82570; 82962; 84300; 84484; 85025; 95819; G0378

== ENCOUNTER 2024-08-16 20:45 | Emergency (ER) | payer MEDICAID ==
[~2024-08-16] VITALS: Ht 170.2 cm; Wt 88.0 kg
[2024-08-16 20:45] VITALS: BP 138/100; PULSE 98; RESP 20; O2SAT 98
[2024-08-16 22:08] LABS: Urine Bacteria None Seen /hpf (None Seen)
[2024-08-16 22:18] LABS: Urine Bacteria None Seen /hpf (None Seen)
[2024-08-16 22:22] LABS: Basophils # (auto) 0.1 10 ^3/uL (0-0.2); Basophils % (auto) 0.9 % (0.0-2.0); Eosinophils # (auto) 0.6 10 ^3/uL (0-0.8); Eosinophils % (auto) 6.3 % (0.0-7.0); Hematocrit 30.5 % (41.0-53.0); Hemoglobin 10.3 g/dL (13.5-17.5); Lymphocytes # (auto) 1.6 10 ^3/uL (0.4-5.4); Lymphocytes % (auto) 16.1 % (10.0-50.0); Mean Corpuscular Hemoglobin 30.8 pg (28.0-32.0); Mean Corpuscular Hgb Conc. 33.6 g/dL (32.0-36.0); Mean Corpuscular Volume 91.5 fL (80.0-100.0); Monocytes # (auto) 0.9 10 ^3/uL (0-1.3); Neutrophils # (auto) 6.5 10 ^3/uL (1.6-8.6); Neutrophils % (auto) 67.7 % (37.0-80.0); Platelet Count (auto) 286 10^3/uL (140-450); Red Blood Cells 3.33 10^6/uL (4.5-5.90); Red Cell Distribution Width 14.1 % (11.8-14.3); White Blood Cell 9.6 10^3/uL (4.4-10.8)
[2024-08-16 22:40] LABS: Alanine Aminotransferase 17 U/L (7-40); Albumin 4.6 g/dL (3.2-4.8); Alkaline Phosphatase 85 U/L (46-116); Anion Gap 8 (5-15); Aspartate Aminotransferase 12 U/L (13-40); BUN/Creatinine Ratio 16.7 (10.0-20.0); Blood Urea Nitrogen 48 mg/dL (9-23); Calcium 9.4 mg/dL (8.7-10.4); Carbon Dioxide 22 mmol/L (20-31); Chloride 108 mmol/L (98-107); Glucose 131 mg/dL (74-106); Sodium 138 mmol/L (136-145)
[2024-08-16 22:41] LABS: Bilirubin, Total 0.3 mg/dL (0.2-1.0); Total Protein 7.4 g/dL (5.7-8.2)
[2024-08-16 22:57] LABS: Urine Amorphous Crystal FEW /hpf (None Seen); Urine Blood 3+ /uL (Negative); Urine Clarity Turbid (Clear); Urine Color Light-Brown (Yellow); Urine Protein, UAD 3+ (Negative); Urine Specific Gravity 1.011 (1.001-1.035); Urine Urobilinogen Normal (Negative); Urine WBC 32 /hpf (0 - 3); Urine pH 6.5 (5.0-9.0)
[2024-08-16 22:58] LABS: Urine Amorphous Crystal FEW /hpf (None Seen); Urine Blood 1+ /uL (Negative); Urine Clarity Clear (Clear); Urine Color Colorless (Yellow); Urine Protein, UAD 1+ (Negative); Urine Specific Gravity 1.009 (1.001-1.035); Urine Urobilinogen Normal (Negative); Urine WBC 6 /hpf (0 - 3); Urine pH 5.5 (5.0-9.0)
[2024-08-17] MEDS ORDERED: NITR-87 PO (00:45)
[2024-08-17] MEDS: cefTRIAXone SOD 1,000 MG VL IM ONE (02:10)
== END 2024-08-17 02:47 | disposition home or self-care (01) ==
LOC: ER 20:45
DX: N39.0 Urinary tract infection, site not specified (principal); I10 Essential (primary) hypertension; E11.9 Type 2 diabetes mellitus without complications; F17.210 Nicotine dependence, cigarettes, uncomplicated; Z79.899 Other long term (current) drug therapy
CPT/HCPCS: 36415; 74176; 80053; 81001; 85025; 96372; 99285; J0696

== ENCOUNTER 2024-08-18 22:14 | Emergency (ER) | payer MEDICAID ==
[~2024-08-18] VITALS: Ht 170.2 cm; Wt 88.1 kg
[~2024-08-18 22:14] MED LIST changes: +NITR-87 PO
[2024-08-18 22:26] VITALS: BP 174/89; PULSE 92; RESP 16; O2SAT 98
== END 2024-08-19 03:12 | disposition left against medical advice (07) ==
LOC: ER 22:14
DX: T83.032A Leakage of nephrostomy catheter, initial encounter (principal); E11.9 Type 2 diabetes mellitus without complications; F17.210 Nicotine dependence, cigarettes, uncomplicated; I10 Essential (primary) hypertension; F15.10 Other stimulant abuse, uncomplicated; Z79.52 Long term (current) use of systemic steroids; Z87.442 Personal history of urinary calculi

== ENCOUNTER 2024-11-19 23:37 | Emergency (ER) | payer MEDICAID ==
[~2024-11-19] VITALS: Ht 170.2 cm; Wt 96.1 kg
[2024-11-19 23:58] VITALS: BP 147/78; PULSE 90; RESP 20; O2SAT 94
[2024-11-20 00:28] LABS: Basophils # (auto) 0.1 10 ^3/uL (0-0.2); Basophils % (auto) 0.7 % (0.0-2.0); Eosinophils # (auto) 0.7 10 ^3/uL (0-0.8); Eosinophils % (auto) 9.2 % (0.0-7.0); Hematocrit 33.6 % (41.0-53.0); Hemoglobin 11.4 g/dL (13.5-17.5); Lymphocytes # (auto) 1.9 10 ^3/uL (0.4-5.4); Lymphocytes % (auto) 24.3 % (10.0-50.0); Mean Corpuscular Hemoglobin 29.1 pg (28.0-32.0); Mean Corpuscular Hgb Conc. 33.8 g/dL (32.0-36.0); Mean Corpuscular Volume 86.1 fL (80.0-100.0); Monocytes # (auto) 0.9 10 ^3/uL (0-1.3); Monocytes % (auto) 11.9 % (0.0-12.0); Neutrophils # (auto) 4.2 10 ^3/uL (1.6-8.6); Neutrophils % (auto) 53.9 % (37.0-80.0); Platelet Count (auto) 266 10^3/uL (140-450); Red Cell Distribution Width 13.7 % (11.8-14.3); White Blood Cell 7.7 10^3/uL (4.4-10.8)
[2024-11-20 00:38] LABS: Chloride 102 mmol/L (98-107); Potassium 4.1 mmol/L (3.5-5.1)
[2024-11-20 00:39] LABS: Anion Gap 9 (5-15); Calcium 9.8 mg/dL (8.7-10.4); Carbon Dioxide 25 mmol/L (20-31)
[2024-11-20 00:43] LABS: Sodium 136 mmol/L (136-145)
[2024-11-20 00:44] LABS: BUN/Creatinine Ratio 13.3 (10.0-20.0)
[2024-11-20 00:47] LABS: Blood Urea Nitrogen 47 mg/dL (9-23); Glucose 111 mg/dL (74-106)
--- NOTE | 2024-11-20 02:37 | ED.PDOC ---
General HPI Comments This patient is a obese 58-year-old male who arrives the ED today for evaluation of a hematuria event today. Patient has a long history of kidney concerns and additionally, has a long-term catheter placed. Patient states that he noticed a small hematuria event in his leg bag yesterday. Patient states the symptoms resolved but then returned again today status post having his Machado catheter replaced. Patient denies any fever nausea or vomiting. Patient denies any pain. Vital signs were stable on arrival. Chief Complaint: Urinary Time Seen by MD: 23:41 Primary Care Provider: [facility] Reviewed notes: Nurses Notes Allergies: Coded Allergies: No Known Drug Allergy (Verified Allergy, Unknown, 08/11/18) Home Meds Active Scripts Nitrofurantoin Monohydrate Mac (Macrobid) 100 Mg Cap, 100 MG PO BID for 7 Days, #14 CAP Prov:DION ALCANTARA 08/17/24 Ciprofloxacin Hcl (Cipro) 500 Mg Tab, 1 TAB PO BID for 10 Days, #20 TAB Prov:DION ALCANTARAP 07/28/24 Metronidazole (Flagyl) 500 Mg Tab, 1 TAB PO TID for 10 Days, #30 TAB Prov:DION ALCANTARAP 07/28/24 Tamsulosin Hcl (Tamsulosin Hcl) 0.4 Mg Cap, 1 CAP PO DAILY for 30 Days, #30 CAP 2 Refills Prov:EILEEN FAIR 07/06/24 Ibuprofen Micronized (Ibuprofen) 600 Mg Tab, 600 MG PO Q8HPRN PRN for 30 Days, #90 TAB 0 Refills Prov:BERNARDO MCMULLENP 10/30/22 Albuterol Sulfate (VENTOLIN MDI) 90 Mcg Ih, 90 MCG IN PRN, #1 INH 0 Refills 2 to 4 inhalations every 20 minutes for 3 doses as needed Prov:GABRIEL FITZPATRICK 08/17/22 Prednisone (Prednisone) 20 Mg Tab, 20 MG PO BID for 5 Days, #10 TAB 0 Refills Prov:GABRIEL FITZPATRICK 08/17/22 Sulfamethoxazole-Trimethoprim (Bactrim) 1 Tab Tab, 1 TAB PO BID for 10 Days, #14 TAB Prov:JOSHUA VALENZUELA 06/27/22 Ibuprofen (Ibuprofen) 800 Mg Tab, 800 MG PO TID PRN, #24 TAB Prov:JOSHUA VALENZUELA CHANTE 06/20/22 Information Source: Patient Mode of Arrival: Ambulatory Severity: Moderate Timing: Hours Duration: Since onset Prehospital treatment: None Onset: Spontaneous Symptoms: Hematuria History of: Other (Kidney disease with catheter placement) Past Medical History PAST MEDICAL HISTORY: DM, HTN, Kidney Stones Past Medical History (Other): Long-term indwelling catheter Family History Family History: Reviewed,noncontributory to illness Social History Smoker: Cigarettes, Less Than 1 Pack/Day Alcohol: Occasionally Drugs: Methamphetamine Lives In: Home Constitutional: denies: chills, diaphoresis, fatigue, fever, malaise, sweats, weakness, others EENTM: denies: blurred vision, double vision, ear bleeding, ear discharge, ear drainage, ear pain, ear ringing, eye pain, eye redness, hearing loss, mouth p ain, mouth swelling, nasal discharge, nose bleeding, nose congestion, nose pain, photophobia, tearing, throat pain, throat swelling, voice changes, others Respiratory: denies: cough, hemoptysis, orthopnea, SOB at rest, shortness of br eath, SOB with excertion, stridor, wheezing, others Cardiovascular: denies: chest pain, dizzy spells, diaphoresis, Dyspnea on exertion, edema, irregular heart beat, left arm pain, lightheadedness, palpitations, PND, syncope, others Gastrointestinal: denies: abdomen distended, abdominal pain, blood streaked bowels, constipated, diarrhea, dysphagia, difficulty swallowing, hematemesis, melena, nausea, poor appetite, poor fluid intake, rectal bleeding, rectal pain, vomiting, others Genitourinary: reports: hematuria; denies: burning, dysuria, flank pain, frequency, incontinence, penile discharge, penile sore, pain, testicle pain, testicle swelling, urgency, others Neurological: denies: dizziness, fainting, headache, left sided numbness, left sided weakness, numbness, paresthesia, pre-existing deficit, right sided numbness, right sided weakness, seizure, speech problems, tingling, tremors, weakness, others Musculoskeletal: denies: back pain, gout, joint pain, joint swelling, muscle pain, muscle stiffness, neck pain, others Integumetry: denies: bruises, change in color, change in hair/nails, dryness, laceration, lesions, lumps, rash, wounds, others Allergic/Immunocompromised: denies: Difficulty Healing, Frequent Infections, Hives, Itching, others Hematologic/Lymphatic: denies: anemia, blood clots, easy bleeding, easy bruisin g, swollen glands, others Endocrine: denies: excessive hunger, excessive sweating, excessive thirst, excessive urination, flushing, intolerance to cold, intolerance to heat, unexplained weight gain, unexplained weight loss, others Psychiatric: denies: anxiety, bipolar disorder, depression, hopeless, panic disorder, schizophrenia, sleepless, suicidal, others Physical Exam General Appearance: No Apparent Distress (Patient is in no distress at time of evaluation.), Obese HEENT: Normal ENT Inspection, Pharynx Normal, TMs Normal Neck: Full Range of Motion, Non-Tender, Normal, Normal Inspection Respiratory: Chest Non-Tender, Lungs Clear, No Accessory Muscle Use, No Respiratory Distress, Normal Breath Sounds Cardiovascular: No Edema, No JVD, No Murmur, No Gallop, Normal Peripheral Pulses, Regular Rate/Rhythm Breast Exam: Deferred Gastrointestinal: No Organomegaly, Non Tender, No Pulsatile Mass, Normal Bowel Sounds, Soft Genitalia: Other (Machado catheter in place) Pelvic: Deferred Rectal: Deferred Extremities: No calf tenderness, Normal capillary refill, Normal inspection, Normal range of motion, Non-tender, No pedal edema Neurologic: Alert, No Motor Deficits, Normal Affect, Normal Mood, No Sensory Deficits Cerebellar Function: Normal Reflexes: Normal Skin: Dry, Normal Color, Warm Lymphatic: No Adenopathy Was a procedure done? Was a procedure done?: No Differential Diagnosis Kidney stone (Female): Other (UTI, hematuria) X-Ray, Labs, Meds, VS Vital Signs Date Time Temp Pulse Resp B/P (MAP) Pulse Ox O2 Delivery O2 Flow Rate FiO2 11/19/24 23:58 98.8 90 20 147/78 (101) 94 Lab Test 11/20/24 02:03 11/19/24 23:57 Range/Units Urine Color Pending Urine Clarity Pending Urine pH Pending Urine Specific [place] Pending Urine Protein Pending Urine Ketones Pending Urine Blood Pending Urine Nitrite Pending Urine Bilirubin Pending Urine Urobilinogen Pending Urine Leukocyte Esterase Pending Urine RBC Pending Urine WBC Pending Urine Squamous Epithelial Cells Pending Urine Bacteria Pending Urine Glucose Pending White Blood Count 7.7 4.4-10.8 10^3/uL Red Blood Count 3.90 L 4.5-5.90 10^6/uL Hemoglobin 11.4 L 13.5-17.5 g/dL Hematocrit 33.6 L 41.0-53.0 % Mean Corpuscular Volume 86.1 80.0-100.0 fL Mean Corpuscular Hemoglobin 29.1 28.0-32.0 pg Mean Corpuscular Hemoglobin Concent 33.8 32.0-36.0 g/dL Red Cell Distribution Width 13.7 11.8-14.3 % Platelet Count 266 140-450 10^3/uL Mean Platelet Volume 6.7 L 6.9-10.8 fL Neutrophils (%) (Auto) 53.9 37.0-80.0 % Lymphocytes (%) (Auto) 24.3 10.0-50.0 % Monocytes (%) (Auto) 11.9 0.0-12.0 % Eosinophils (%) (Auto) 9.2 H 0.0-7.0 % Basophils (%) (Auto) 0.7 0.0-2.0 % Neutrophils # (Auto) 4.2 1.6-8.6 10 ^3/uL Lymphocytes # (Auto) 1.9 0.4-5.4 10 ^3/uL Monocytes # (Auto) 0.9 0-1.3 10 ^3/uL Eosinophils # (Auto) 0.7 0-0.8 10 ^3/uL Basophils # (Auto) 0.1 0-0.2 10 ^3/uL Nucleated Red Blood Cells 0.0 % Sodium Level 136 136-145 mmol/L Potassium Level 4.1 3.5-5.1 mmol/L Chloride Level 102 98-107 mmol/L Carbon Dioxide Level 25 20-31 mmol/L Anion Gap 9 5-15 Blood Urea Nitrogen 47 H 9-23 mg/dL Creatinine 3.54 H 0.700-1.30 mg/dL Glomerular Filtration Rate Calc 19 >90 mL/min BUN/Creatinine Ratio 13.3 10.0-20.0 Serum Glucose 111 H 74-106 mg/dL Calcium Level 9.8 8.7-10.4 mg/dL X-Ray, Labs, Meds, VS Comment All studies performed the ED were evaluated by me personally. Serum laboratories revealed the expected kidney disease concerns. Patient will be treated for a mild urinary tract infection and sent home with antibiotics. Patient has been advised to follow up with his primary care provider and urologist. Time of 1ST Reevaluation: 02:41 Reevaluation 1ST: Improved Consultation: PCP, Urology, Other (Nephrology) Patient Education/Counseling: Diagnosis, Treatment Family Education/Counseling: Diagnosis, Treatment Departure 1 Departure Time of Disposition: 02:42 Impression: Primary Impression: Urinary tract infection Disposition: 01 HOME / SELF CARE / HOMELESS Condition: Stable Additional Instructions: Advised patient utilize antibiotics as directed until completion and additionally, follow up with his primary care provider, urologist and wind [facility] and planning for long-term management. e-Prescriptions Sulfamethoxazole W/Trimethopri (Bactrim Ds Tablet) 1 Tab Tb 1 TAB PO BID for 7 Days, #14 TAB Prov: DAVY KELLY PAC 11/20/24 Discharged With: Self, Friend Critical Care Note Critical Care Time?: No Stability Stability form required: No Heart Score Heart Score: Heart Score Response (Comments) Value History N/A 0 EKG N/A 0 Age N/A 0 Risk Factors N/A 0 Troponin N/A 0 Total 0 DAVY KELLY PAC Nov 20, 2024 02:37
[2024-11-20] MEDS ORDERED: BACDST PO (02:43)
[2024-11-20] MEDS: SULFAMETHOX W/TRIMETH(800/160MG) DS TAB PO ONE (03:26)
[2024-11-20 03:35] LABS: Urine Bacteria FEW /hpf (None Seen); Urine Blood 3+ /uL (Negative); Urine Budding Yeast FEW /hpf (None Seen); Urine Clarity Turbid (Clear); Urine Color Light-Brown (Yellow); Urine Protein, UAD 1+ (Negative); Urine Specific Gravity 1.004 (1.001-1.035); Urine Squamous Epithelial Cell None Seen /hpf (<5); Urine Urobilinogen Normal (Negative); Urine WBC 23 /hpf (0 - 3); Urine pH 5.5 (5.0-9.0)
== END 2024-11-20 03:29 | disposition home or self-care (01) ==
LOC: ER 23:37
DX: N39.0 Urinary tract infection, site not specified (principal); E11.9 Type 2 diabetes mellitus without complications; F17.210 Nicotine dependence, cigarettes, uncomplicated; I10 Essential (primary) hypertension; F15.10 Other stimulant abuse, uncomplicated; Z79.52 Long term (current) use of systemic steroids; Z87.442 Personal history of urinary calculi
CPT/HCPCS: 36415; 80048; 81001; 85025